=== PATIENT | female | born 1985 | race Caucasian/White ===

== ENCOUNTER 2020-06-27 10:52 | Emergency (ER) | payer MEDICAID ==
[~2020-06-27] VITALS: Ht 157.5 cm; Wt 63.0 kg
--- NOTE | 2020-06-27 10:55 | NUR ---
PT ANGELI FROM HOME C/O SOB, PAIN WHEN COUGHING X 2 WEEKS, PT STATES, SHE WAS TESTED FOR COVID LAST 06/25 AND GOT A POSITIVE RESULT YESTERDAY. PT GOWNED PLACED ON MONITOR. STABLE VITALS. SATTING 100% ON [employer]. AWAITING MD JOHNSON.
--- NOTE | 2020-06-27 11:15 | NUR ---
IV LINE STARTED. BLOOD DRAWN AND SENT TO LAB.
[2020-06-27 11:28] LABS: BASOPHILS % (AUTO) 0.6 % (0.0-2.0); EOSINOPHILS % (AUTO) 0.9 % (0.0-6.0); HEMATOCRIT 41 % (33-45); LYMPHOCYTES # (AUTO) 1.8 /CMM (0.8-4.8); MEAN CORPUSCULAR HGB CONC 35 g/dl (31.0-36.0); MEAN CORPUSCULAR VOLUME 93 fL (82-100); MONOCYTES # (AUTO) 0.6 /CMM (0.1-1.30); MONOCYTES % (AUTO) 7.8 % (2.0-12.0); NEUTROPHILS # (AUTO) 4.8 /CMM (1.8-8.9); NEUTROPHILS % (AUTO) 65.7 % (43.0-81.0); PLATELET COUNT (AUTO) 297 /CMM (150-450); WHITE BLOOD COUNT (AUTO) 7.3 K/uL (4.3-11.0)
[2020-06-27 11:37] LABS: CARBON DIOXIDE 25 mmol/L (21-32); CHLORIDE 104 mmol/L (98-107); CREATININE 0.6 mg/dL (0.6-1.3); GLUCOSE 113 mg/dL (74-106); SODIUM SERUM 137 mmol/L (136-145); UREA NITROGEN, BLOOD 13 mg/dL (7-18)
[2020-06-27 11:48] LABS: ALANINE AMINOTRANSFERASE 42 U/L (12-78); ALBUMIN 3.2 g/dL (3.4-5.0); ALKALINE PHOSPHATASE 68 U/L (46-116); ASPARTATE AMINOTRANSFERASE 20 U/L (15-37); BILIRUBIN,TOTAL 0.2 mg/dL (0.2-1.0); TOTAL PROTEIN, SERUM 6.7 g/dL (6.4-8.2)
[2020-06-27 11:51] LABS: B-TYPE NATRIURETIC PEPTIDE 46 PG/ML (0-125)
--- NOTE | 2020-06-27 11:59 | NUR ---
GOT BED 104
--- NOTE | 2020-06-27 12:14 | NUR ---
URINE COLLECTED AND SENT TO THE LAB
--- NOTE | 2020-06-27 12:22 | NUR ---
COVID SWABS DONE AND SENT TO THE LAB
[2020-06-27 12:25] LABS: BILIRUBIN,URINE Negative (NEGATIVE); COLOR,URINE YELLOW (YELLOW); LEUKOCYTE ESTERASE ,URINE Large (NEGATIVE); NITRITE, URINE Negative (NEGATIVE); PROTEIN,URINE Negative (NEGATIVE); UGLUCOSE Negative (NEGATIVE); UROBILINOGEN,URINE 0.2 EU/dL (0.2)
[2020-06-27] MEDS ORDERED: KETOROLAC TROMETHAMINE 15 MG/ML VIAL ONE (12:25)
[2020-06-27] MEDS ORDERED: KETOROLAC TROMETHAMINE INJ 30 MG/ML VIAL IV ONE (12:30)
[2020-06-27] MEDS ORDERED: IV NS 0.9% 500 ML BAG IV ONE (12:30)
[2020-06-27 12:33] LABS: D-DIMER 0.37 mg/L(FEU (0.17-0.50)
[2020-06-27 12:34] LABS: CREATINE KINASE, TOTAL 82 U/L (26-192); FERRITIN 136 ng/mL (8-388)
[2020-06-27 12:35] LABS: BACTERIA,URINE 1+ /HPF (None Seen); SQUAMOUS EPITHELIAL CELL,UR Few /HPF (None Seen)
[2020-06-27 12:36] LABS: C-REACTIVE PROTEIN < 0.2 mg/dL (0.0-0.9)
[2020-06-27] MEDS ORDERED: TRAZ-252 PO (12:57)
[2020-06-27] MEDS ORDERED: ESCI20TA PO (12:57)
[2020-06-27] MEDS ORDERED: BUSP5TAB3 PO (12:57)
[2020-06-27 13:07] LABS: BILIRUBIN,DIRECT 0.1 mg/dL (0.0-0.2)
[2020-06-27] MEDS ORDERED: IBUP-1955 PO (14:06)
[2020-06-27] MEDS ORDERED: BENZ-13 PO (14:06)
[2020-06-27] MEDS ORDERED: NITR100C6 PO (14:06)
--- NOTE | 2020-06-27 14:22 | NUR ---
The patient is alert and oriented x4. Denies pain. In room air and denies SOB. Respiration regular and unlabored. Patient discharged to home in stable condition. Written and verbal after care instructions given. Patient verbalizes understanding of instruction.
[2020-06-27 14:23] VITALS: BP 128/76
== END 2020-06-27 14:23 | disposition home or self-care (01) ==
LOC: ER 11:15
DX: U07.1 COVID-19 (principal); N39.0 Urinary tract infection, site not specified; R91.1 Solitary pulmonary nodule
CPT/HCPCS: 36415; 71045; 80053; 81001; 82248; 82550; 82728; 83605 ×2; 83615; 83880; 84145; 84484; 85025; 85378; 85730; 86140; 87040 ×2; 87086; 87426; 93005; 96374; 99285; J1885; J7040; U0003; C9803